=== PATIENT | female | born 1940 | race Caucasian/White ===

== ENCOUNTER 2019-04-25 13:35 | Inpatient (IN) | payer OTHER, MEDICARE ==
--- NOTE | 2019-04-25 13:40 | PDOC ---
Attending Attestation - Resident Resident Name: Jillian Jimenez - ED Attending Attestation I have performed the following: I have examined & evaluated the patient, The case was reviewed & discussed with the resident, I agree w/resident's findings & plan, Exceptions are as noted - HPI HPI: 04/25/19 16:41 78-year-old female with anemia and shortness of breath. Both problems date back several months, but it is uncertain to what extent they were present and how fast they are progressing. The patient does not feel she is more short of breath than usual, but her daughter has noticed that she becomes dyspneic after a short walk on level ground, whereas before it was precipitated only by climbing stairs. She suffered a fall with a broken wrist and multiple injuries in February and at that time was transferred from [facility] to [facility] for rehab. Before that she was living in the [place], and her primary physician was working up her anemia. She reportedly had colonoscopy and upper endoscopy which were negative, and normal iron studies Again, it is uncertain how fast her anemia is progressing, but it appears to be chronic. She is not orthostatic. She has been on insulin since being admitted to [facility]. Before that she was maintained on metformin for type II but diabetes for many years. She had a DVT after her fall and was begun on Eliquis 04/25/19 16:55 After prolonged catheterization, she was unable to urinate, Flomax was begun and she is now urinating well. - Physicial Exam PE: 10/Physical exam reveals normal vital signs. Alert oriented well-developed and well-nourished in no acute distress. She is not dyspneic or tachypneic at rest HEENT clear Neck supple without bruit mass or nodes Chest clear with full breath sounds bilaterally. No wheezes rales or rhonchi S1-S2 normal without murmur rub or gallop muscles full and symmetric no JVD or edema no bruits regular rate Abdomen soft nontender without mass or organomegaly. Bowel sounds normal. Nondistended Extremities no CCE Skin clear, no rash, adequate turgor and wet mucous membranes Neurological C2 to 12 intact. Strength full and symmetric. No focal sensorimotor deficits. EKG shows normal sinus rhythm, no ST-T wave changes. There is poor R wave progression, primarily in lead V3, which could be due to lead placement. No other abnormalities. Chest x-ray is clear, without sign of cardiomegaly or congestive changes. Labs are significant for hemoglobin 7.4. Prior readings on April 10, April 17 , and April 24 were in the 6.5-6.9 range. Urinalysis shows 20-30 white cells INR 1.43 No other significant abnormalities. - Medical Decision Making 04/25/19 16:59 Assessment: Chronic anemia, possibly slowly worsening, and resulting in dyspnea on exertion. No congestive signs on x-ray. No sign of infection or COPD. On Eliquis, PE unlikely. Plan: Admit for cardiology and hematology consultation, careful transfusion with monitoring, and further elucidation of the source of anemia.
--- NOTE | 2019-04-25 14:12 | PDOC ---
History of Present Illness - General Chief Complaint: Shortness of Breath Stated Complaint: SHORTNESS OF BREATH Time Seen by Provider: 04/25/19 13:37 Past History - Past Medical History Allergies/Adverse Reactions: Allergies Allergy/AdvReac Type Severity Reaction Status Date / Time No Known Allergies Allergy Verified 04/25/19 13:37 Home Medications: Ambulatory Orders Aa/Hydrolyzed Collagen, Whey [Lps Neutral Flavor Liquid] 30 ml PO DAILY Acetaminophen [Tylenol] 650 mg PO QID PRN 04/25/19 Apixaban [Eliquis] 5 mg PO BID 04/25/19 Ascorbate Calcium [Vitamin C] 500 mg PO DAILY 04/25/19 Benazepril HCl 10 mg PO DAILY 04/25/19 Cran B Pac 30 ml PO DAILY 04/25/19 Esomeprazole Magnesium [Nexium 24Hr] 20 mg PO DAILY 04/25/19 Glipizide [Glucotrol Xl] 10 mg PO DAILY 04/25/19 Insulin (LOG) Aspart [NovoLOG -] 7 unit SQ ASDIR 04/25/19 Insulin Glargine,Hum.rec.anlog [Lantus Solostar] 30 unit SQ AM 04/25/19 Levothyroxine [Synthroid -] 112 mcg PO DAILY 04/25/19 Melatonin/Pyridoxine HCl (B6) [Melatonin 5 mg Tablet] 1 tab PO HS 04/25/19 Multivitamin [Multiple Vitamins] 1 each PO DAILY 04/25/19 Nystatin Cream [Mycostatin Cream -] 1 applic TP DAILY 04/25/19 Ondansetron Injection [Zofran Injection] 4 mg IM Q8H PRN 04/25/19 Saccharomyces Boulardii [Florastor] 250 mg PO BID 04/25/19 Sennosides [Senna] 2 tab PO HS 04/25/19 Simethicone 80 mg PO QID PRN 04/25/19 Simvastatin 20 mg PO HS 04/25/19 Tamsulosin HCl [Flomax] 0.4 mg PO DAILY 04/25/19 Triamcinolone 0.1% Cream [Aristocort] 1 applic TP ASDIR 04/25/19 COPD: No GI Disorders: Yes (GERD) Disorders: Yes (DIFFICULTY URINATING,HAD CHENEY IN PLACE FOR A FEW WEEKS PER PT.) HTN: Yes Hypercholesterolemia: Yes Thyroid Disease: Yes (HYPO) Other medical history: OA,RT KNEE,OBEISITY,FALLS,DIFFICULTY WALKING,LEFT WRIST FRACTURE. - Surgical History Abdominal Surgery: (colonoscopy,endoscopy) - Psycho Social/Smoking Cessation Hx Smoking History: Unknown if ever smoked Hx Alcohol Use: No Drug/Substance Use Hx: No *Physical Exam - Vital Signs Last Vital Signs Temp Pulse Resp BP Pulse Ox 98.7 F 86 20 134/52 L 99 04/25/19 13:36 04/25/19 13:36 04/25/19 13:36 04/25/19 13:36 04/25/19 13:53 ED Treatment Course - LABORATORY CBC & Chemistry Diagram: 04/26/19 07:08 04/26/19 07:08 Medical Decision Making - Medical Decision Making HPI: 78yo F with PMH of HTN, HLD, DM, hypothyroidism, DVT in LLE (on Eliquis) sent by [facility] for evaluation of dyspnea on exertion and low hemoglobin. Patient' s daughter is at the bedside providing collateral history. Patient states she has had anemia since the past summer but is unsure why even though "they have run several tests." Has had recent colonoscopy which was negative for GI bleed. Is residing at [facility] after suffering a fall in February and sustaining left wrist fracture and broken nose. Has had urinary retention since that time for which she takes flomax. Reports feeling progressively worsening shortness of breath such that she can hardly walk across the room without feeling dyspneic. No weakness, lightheadedness, chest pain. Denies hematemesis, melena, or hematochezia. No fevers or chills. PCP: Dr. Baird (spelling? affilitated with Adrienne) [facility] ROS: Constitutional: no fever, no chills HEENT: no throat pain, no dysphagia Cardiovascular: no chest pain, no palpitations Respiratory: no cough, +shortness of breath Gastrointestinal: no abdominal pain, no nausea Genitourinary: no dysuria, +urinary retention Musculoskeletal: no myalgia, no arthralgia Skin: no rash, no itching Neurologic: no headache, no weakness PE: General: Awake, alert, and fully oriented, in no acute distress Head: No signs of trauma Eyes: EOMI, sclera anicteric ENT: Moist mucus membranes Neck: Normal ROM, supple Lungs: Lungs clear, Normal breath sounds Cardio: Regular rhythm, S1 and S2 present Abdomen: Soft, nontender Extremities: Distal pulses present, 2+ pitting edema in BLE SKIN: Warm, Dry, normal turgor Neurologic: Cranial nerves II through XII grossly intact. Normal speech Rectal: The skin is without erythema or induration. No external hemorrhoids, fissures, skin tags, warts, or discharge. Sphincter tone normal. There are no masses palpated on digital exam. Stool is brown with no myra red blood. ED Course/MDM: DDX including but not limited to anemia, GI bleed, pneumonia, COPD, asthma, malignancy, PE Labs, EKG, CXR 04/25/19 14:11 EKG: rate 80, QTc 435, NSR 04/25/19 15:16 CBC WBC 10.4 K/mm3 (4.0-10.8) 04/25/19 15:05 Corrected WBC (auto) Cancelled 04/25/19 14:15 RBC 3.37 M/mm3 (3.60-5.2) L 04/25/19 15:05 Hgb 7.4 GM/dl (10.7-15.3) L 04/25/19 15:05 Hct 25.1 % (32.4-45.2) L 04/25/19 15:05 MCV 74.6 fl (80-96) L 04/25/19 15:05 MCH 21.8 pg (25.7-33.7) L 04/25/19 15:05 MCHC 29.3 g/dl (32.0-36.0) L 04/25/19 15:05 RDW 17.7 % (11.6-15.6) H 04/25/19 15:05 Plt Count 435 K/MM3 (134-434) H 04/25/19 15:05 MPV 9.3 fl (7.5-11.1) 04/25/19 15:05 Absolute Neuts (auto) 7.1 K/mm3 04/25/19 15:05 Neutrophils % 68.8 % (42.8-82.8) 04/25/19 15:05 Lymphocytes % 19.8 % (8-40) 04/25/19 15:05 Monocytes % 9.6 % (3.8-10.2) 04/25/19 15:05 Eosinophils % 1.5 % (0-4.5) 04/25/19 15:05 Basophils % 0.3 % (0-2.0) 04/25/19 15:05 Nucleated RBC % Cancelled 04/25/19 14:15 Platelet Estimate Cancelled 04/25/19 14:15 Platelet Comment Cancelled 04/25/19 14:15 No leukocytosis Hgb 7.4 CMP Sodium 136 mmol/L (136-145) 04/25/19 14:15 Potassium 4.4 mmol/L (3.5-5.1) 04/25/19 14:15 Chloride 107 mmol/L (98-107) 04/25/19 14:15 Carbon Dioxide 24 mmol/L (21-32) 04/25/19 14:15 Anion Gap 5 MMOL/L (8-16) L 04/25/19 14:15 BUN 23.0 mg/dl (7-18) H 04/25/19 14:15 Creatinine 0.9 mg/dl (0.55-1.3) 04/25/19 14:15 Est GFR (CKD-EPI)AfAm 70.98 04/25/19 14:15 Est GFR (CKD-EPI)NonAf 61.24 04/25/19 14:15 Random Glucose 97 mg/dl (74-106) 04/25/19 14:15 Calcium 9.0 mg/dl (8.5-10) 04/25/19 14:15 Total Bilirubin 0.3 mg/dl (0.2-1) 04/25/19 14:15 AST 35 U/L (15-37) 04/25/19 14:15 ALT 29 U/L (13-61) 04/25/19 14:15 Alkaline Phosphatase 167 U/L (45-117) H 04/25/19 14:15 Creatine Kinase 18 U/L (26-192) L 04/25/19 14:15 Troponin I < 0.03 ng/ml (0.00-0.05) 04/25/19 14:15 Total Protein 5.9 g/dl (6.4-8.2) L 04/25/19 14:15 Albumin 3.5 g/dl (3.4-5.0) 04/25/19 14:15 Electrolytes unremarkable Cr normal No transaminitis Tpn undetectable FOBT negative UA with +2LE and +nitrite, pending differential; urine culture ordered 1 unit PRBC ordered Type and screen CXR as read by radiology: "CLINICAL:SOB Comparison: None Portable examination of the chest reveals no evidence of infiltrate or congestive changes. There is no evidence of mediastinal masses or hilar adenopathy. The visualized osseous and soft tissue structures are unremarkable. IMPRESSION: No infiltrate " Plan for admission 04/25/19 16:56 Explained benefits/risks of blood transfusion and patient voiced understanding. Patient signed blood consent with daughter witnessing 04/25/19 17:10 Dr. Licea discussed case with [facility] Eva Flaherty who accepted patient for admission under Dr. Rubi 04/25/19 17:39 Discharge - Discharge Information Problems reviewed: Yes Clinical Impression/Diagnosis: Symptomatic anemia Condition: Guarded - Admission Yes - Follow up/Referral - Patient Discharge Instructions - Post Discharge Activity
[2019-04-25 14:58] LABS: INR 1.43 (0.82-1.09); PROTHROMBIN TIME (PATIENT) 15.9 SEC (10.2-13.0)
[2019-04-25 15:02] LABS: ALBUMIN 3.5 g/dl (3.4-5.0); BILIRUBIN,TOTAL 0.3 mg/dl (0.2-1); CREATININE 0.9 mg/dl (0.55-1.3); POTASSIUM 4.4 mmol/L (3.5-5.1); TOT PROT 5.9 g/dl (6.4-8.2)
[2019-04-25 15:20] LABS: BASO % 0.3 % (0-2.0); EOS % 1.5 % (0-4.5); HEMATOCRIT 25.1 % (32.4-45.2); HEMOGLOBIN 7.4 GM/dl (10.7-15.3); LYMPH % 19.8 % (8-40); MCH 21.8 pg (25.7-33.7); MCHC 29.3 g/dl (32.0-36.0); MEAN CELL VOLUME 74.6 fl (80-96); MEAN PLT VOLUME 9.3 fl (7.5-11.1); MONO % 9.6 % (3.8-10.2); NEUT % 68.8 % (42.8-82.8); PLATELET COUNT 435 K/MM3 (134-434); RBC 3.37 M/mm3 (3.60-5.2); RDW 17.7 % (11.6-15.6); WHITE BLOOD COUNT 10.4 K/mm3 (4.0-10.8)
[2019-04-25 16:17] LABS: ADD RBC MORPHOLOGY YES
[2019-04-25 16:40] LABS: EPITHELIAL CELLS MODERATE /hpf
[2019-04-25 17:24] LABS: ANISOCYTOSIS 1+; PLATELET ESTIMATE SLT INCREASE
--- NOTE | 2019-04-25 17:51 | HP ---
CHIEF COMPLAINT: Shortness of breath PCP: Dr. Russ Baird, [facility] [phone] HISTORY OF PRESENT ILLNESS: 78 year-old female, presently a resident at [facility], with a PMH significant for HTN, HLD, anemia, Type II IDDM, h/o DVT LLE on Eliquis, GERD, hypothyroidism , OA, and urinary retention. Patient suffered a fall in February 2019 and sustained a left wrist fracture facial laceration, and a broken nose. She was hospitalized at [facility] and is now at [facility] undergoing rehab. While at [facility] she was found to have a LLE DVT and was started on Eliquis. Patient was sent to the ED today for increasing SOB, IQBAL, lower extremity edema, and anemia. Prior to her fall in February, patient's PCP was working up her anemia. She reportedly had negative cardiac and GI workups. ER course was notable for: (1) Hgb 7.4, MCV 74.6 (2) occult stool negative Recent Travel: No PAST MEDICAL HISTORY: Hypertension Hyperlipidemia Anemia Type II IDDM h/o DVT LLE GERD Hypothyroidism Osteoarthritis Left wrist fracture Urinary retention PAST SURGICAL HISTORY: Right hip replacement Social History: Smoking: no Alcohol: no Drugs: no Allergies No Known Allergies Allergy (Verified 04/25/19 13:37) HOME MEDICATIONS: Home Medications Medication Instructions Recorded Aa/Hydrolyzed Collagen, Whey [Lps 30 ml PO DAILY 04/25/19 Neutral Flavor Liquid] Acetaminophen [Tylenol] 650 mg PO QID PRN 04/25/19 Apixaban [Eliquis] 5 mg PO BID 04/25/19 Ascorbate Calcium [Vitamin C] 500 mg PO DAILY 04/25/19 Benazepril HCl 10 mg PO DAILY 04/25/19 Cran B Pac 30 ml PO DAILY 04/25/19 Esomeprazole Magnesium [Nexium 20 mg PO DAILY 04/25/19 24Hr] Glipizide [Glucotrol Xl] 10 mg PO DAILY 04/25/19 Insulin (LOG) Aspart [NovoLOG -] 7 unit SQ ASDIR 04/25/19 Insulin Glargine,Hum.rec.anlog 30 unit SQ AM 04/25/19 [Lantus Solostar] Levothyroxine [Synthroid -] 112 mcg PO DAILY 04/25/19 Melatonin/Pyridoxine HCl (B6) 1 tab PO HS 04/25/19 [Melatonin 5 mg Tablet] Multivitamin [Multiple Vitamins] 1 each PO DAILY 04/25/19 Nystatin Cream [Mycostatin Cream -] 1 applic TP DAILY 04/25/19 Ondansetron Injection [Zofran 4 mg IM Q8H PRN 04/25/19 Injection] Saccharomyces Boulardii [Florastor] 250 mg PO BID 04/25/19 Sennosides [Senna] 2 tab PO HS 04/25/19 Simethicone 80 mg PO QID PRN 04/25/19 Simvastatin 20 mg PO HS 04/25/19 Tamsulosin HCl [Flomax] 0.4 mg PO DAILY 04/25/19 Triamcinolone 0.1% Cream 1 applic TP ASDIR 04/25/19 [Aristocort] REVIEW OF SYSTEMS CONSTITUTIONAL: Absent: fever, chills, diaphoresis, generalized weakness, malaise, loss of appetite, weight change HEENT: Absent: rhinorrhea, nasal congestion, throat pain, throat swelling, difficulty swallowing, mouth swelling, ear pain, eye pain, visual changes CARDIOVASCULAR: lower extremity edema Absent: chest pain, syncope, palpitations, irregular heart rate, lightheadedness RESPIRATORY: +shortness of breath, dyspnea with exertion Absent: cough, , orthopnea, wheezing, stridor, hemoptysis GASTROINTESTINAL: Absent: abdominal pain, abdominal distension, nausea, vomiting, diarrhea, constipation, melena, hematochezia GENITOURINARY: Absent: dysuria, frequency, urgency, hesitancy, hematuria, flank pain, genital pain MUSCULOSKELETAL: Absent: myalgia, arthralgia, joint swelling, back pain, neck pain SKIN: Absent: rash, itching, pallor HEMATOLOGIC/IMMUNOLOGIC: Absent: easy bleeding, easy bruising, lymphadenopathy, frequent infections ENDOCRINE: Absent: unexplained weight gain, unexplained weight loss, heat intolerance, cold intolerance NEUROLOGIC: Absent: headache, focal weakness or paresthesias, dizziness, unsteady gait, seizure, mental status changes, bladder or bowel incontinence PSYCHIATRIC: Absent: anxiety, depression, suicidal or homicidal ideation, hallucinations. PHYSICAL EXAMINATION Vital Signs - 24 hr 04/25/19 04/25/19 04/25/19 13:36 13:53 17:01 Temperature 98.7 F Pulse Rate 86 Pulse Rate [ 87 Apical] Respiratory 20 19 Rate Blood Pressure 134/52 L Blood Pressure 126/56 L [Arm] O2 Sat by Pulse 99 99 100 Oximetry (%) GENERAL: Awake, alert, and fully oriented, in no acute distress. HEAD: Normal. Healed scar on forehead. EYES: Pupils equal, round and reactive to light, extraocular movements intact, sclera anicteric, conjunctiva clear. No lid lag. LUNGS: Breath sounds equal, clear to auscultation bilaterally. No wheezes, and no crackles. No accessory muscle use. HEART: Regular rate and rhythm, normal S1 and S2 ABDOMEN: Soft, nontender, not distended MUSCULOSKELETAL: Normal range of motion at all joints. No bony deformities or tenderness. No CVA tenderness. UPPER EXTREMITIES: 2+ pulses, warm, well-perfused. No cyanosis. No clubbing. No peripheral edema. Left wrist in splint. LOWER EXTREMITIES: 2+ pulses, warm, well-perfused. No calf tenderness. 2+ bilateral edema NEUROLOGICAL: Cranial nerves II-XII intact. Normal speech. Laboratory Results - last 24 hr 04/25/19 04/25/19 04/25/19 14:15 14:15 14:15 WBC Cancelled Corrected WBC (auto) Cancelled RBC Cancelled Hgb Cancelled Hct Cancelled MCV Cancelled MCH Cancelled MCHC Cancelled RDW Cancelled Plt Count Cancelled MPV Cancelled Absolute Neuts (auto) Cancelled Neutrophils % Cancelled Lymphocytes % Cancelled Monocytes % Cancelled Eosinophils % Cancelled Basophils % Cancelled Nucleated RBC % Cancelled Platelet Estimate Cancelled Platelet Comment Cancelled PT with INR INR Sodium 136 Potassium 4.4 Chloride 107 Carbon Dioxide 24 Anion Gap 5 L BUN 23.0 H Creatinine 0.9 Est GFR (CKD-EPI)AfAm 70.98 Est GFR (CKD-EPI)NonAf 61.24 Random Glucose 97 Calcium 9.0 Total Bilirubin 0.3 AST 35 ALT 29 Alkaline Phosphatase 167 H Creatine Kinase 18 L Troponin I < 0.03 Total Protein 5.9 L Albumin 3.5 Urine Color Urine Appearance Urine pH Urine Protein Urine Glucose (UA) Urine Ketones Urine Blood Urine Nitrite Urine Bilirubin Urine Urobilinogen Ur Leukocyte Esterase Urine RBC Urine WBC Ur Transition Epith Cell Urine Bacteria Stool Occult Blood 04/25/19 04/25/19 04/25/19 14:15 15:05 15:15 WBC 10.4 Corrected WBC (auto) RBC 3.37 L Hgb 7.4 L Hct 25.1 L MCV 74.6 L MCH 21.8 L MCHC 29.3 L RDW 17.7 H Plt Count 435 H MPV 9.3 Absolute Neuts (auto) 7.1 Neutrophils % 68.8 Lymphocytes % 19.8 Monocytes % 9.6 Eosinophils % 1.5 Basophils % 0.3 Nucleated RBC % Platelet Estimate Platelet Comment PT with INR 15.9 H INR 1.43 H Sodium Potassium Chloride Carbon Dioxide Anion Gap BUN Creatinine Est GFR (CKD-EPI)AfAm Est GFR (CKD-EPI)NonAf Random Glucose Calcium Total Bilirubin AST ALT Alkaline Phosphatase Creatine Kinase Troponin I Total Protein Albumin Urine Color Yellow Urine Appearance Clear Urine pH 6.0 Urine Protein Negative Urine Glucose (UA) Negative Urine Ketones Negative Urine Blood Negative Urine Nitrite Positive H Urine Bilirubin Negative Urine Urobilinogen 0.2 Ur Leukocyte Esterase 2+ Urine RBC 0-2 Urine WBC 40-60 Ur Transition Epith Cell Moderate Urine Bacteria Moderate Stool Occult Blood 04/25/19 16:02 WBC Corrected WBC (auto) RBC Hgb Hct MCV MCH MCHC RDW Plt Count MPV Absolute Neuts (auto) Neutrophils % Lymphocytes % Monocytes % Eosinophils % Basophils % Nucleated RBC % Platelet Estimate Platelet Comment PT with INR INR Sodium Potassium Chloride Carbon Dioxide Anion Gap BUN Creatinine Est GFR (CKD-EPI)AfAm Est GFR (CKD-EPI)NonAf Random Glucose Calcium Total Bilirubin AST ALT Alkaline Phosphatase Creatine Kinase Troponin I Total Protein Albumin Urine Color Urine Appearance Urine pH Urine Protein Urine Glucose (UA) Urine Ketones Urine Blood Urine Nitrite Urine Bilirubin Urine Urobilinogen Ur Leukocyte Esterase Urine RBC Urine WBC Ur Transition Epith Cell Urine Bacteria Stool Occult Blood Negative ASSESSMENT/PLAN: 78 year-old female, presently a resident at [facility], with a PMH significant for HTN, HLD, anemia, Type II IDDM, h/o DVT LLE on Eliquis, GERD, hypothyroidism , OA, and urinary retention. Admitted for microcytic anemia with shortness of breath. Microcytic anemia --Hgb 7.4, prior labs from 04/10, 04/17, 04/24 were in the 6.5-6.9 range --will transfuse one unit PRBC --GI workup within past 6 months negative; occult stool negative here --heme consult placed h/o DVT --continue Eliquis Shortness of breath --uncertain etiology --may be related to anemia --Wells score moderate risk, will get CTA --first troponin negative, two pending; serial ECGs; telemetry monitoring; echo in am --CXR clear, afebrile, no leukocytosis, no h/o asthma/COPD or other respiratory illness Pyuria --UA with 40-60 WBCs --observe off antibiotics pending culture Hypertension --BP stable --continue Lisinopril Hyperlipidemia --continue Lipitor Type II IDDM --Levemir 30U am --Novolog sliding scale GERD --protonix Hypothyroidism --continue levothyroxine --TSH Urinary retention --continue Flomax FEN Fluids: PO intake adequate Electrolytes: replete as indicated Nutrition: diabetic, low sodium DVT prophylaxis: on Eliquis Physical therapy Dispo: continues to require inpatient care. Full code. Visit type - Emergency Visit Emergency Visit: Yes ED Registration Date: 04/25/19 Care time: The patient presented to the Emergency Department on the above date and was hospitalized for further evaluation of their emergent condition. - New Patient This patient is new to me today: Yes Date on this admission: 04/26/19 - Critical Care Critical Care patient: No
[2019-04-25 18:20] VITALS: BMI 32.1
[2019-04-25] MEDS: ATORVASTATIN CA 10 MG TABLET (FP) PO SCH (21:29)
[2019-04-25] MEDS: APIXABAN 5 MG TABLET PO SCH (21:29)
[2019-04-25] MEDS: INSULIN SLIDING SCALE (NOVOLOG) 1 VIAL SQ SCH (21:31)
[2019-04-25] MEDS: MELATONIN 5 MG TABLETS PO SCH (21:31)
--- NOTE | 2019-04-26 04:25 | PN ---
Physical Exam: SUBJECTIVE: Patient seen and examined oob to chair. Feels better after transfusion. OBJECTIVE: Vital Signs Period Temp Pulse Resp BP Sys/Sampson Pulse Ox Last 24 Hr 98.2 F-98.7 F 77-88 18-20 126-138/51-56 98-100 GENERAL: Awake, alert, and fully oriented, in no acute distress. HEAD: Normal. Healed scar on forehead. EYES: Pupils equal, round and reactive to light, extraocular movements intact, sclera anicteric, conjunctiva clear. No lid lag. LUNGS: Breath sounds equal, clear to auscultation bilaterally. No wheezes, and no crackles. No accessory muscle use. HEART: Regular rate and rhythm, normal S1 and S2 ABDOMEN: Soft, nontender, not distended MUSCULOSKELETAL: Normal range of motion at all joints. No bony deformities or tenderness. No CVA tenderness. UPPER EXTREMITIES: 2+ pulses, warm, well-perfused. No cyanosis. No clubbing. No peripheral edema. Left wrist in splint. LOWER EXTREMITIES: 2+ pulses, warm, well-perfused. No calf tenderness. LLE 3+ edema, RLE 2+edema NEUROLOGICAL: Cranial nerves II-XII intact. Normal speech. Laboratory Results - last 24 hr 04/25/19 04/25/19 04/25/19 14:15 14:15 14:15 WBC Cancelled Corrected WBC (auto) Cancelled RBC Cancelled Hgb Cancelled Hct Cancelled MCV Cancelled MCH Cancelled MCHC Cancelled RDW Cancelled Plt Count Cancelled MPV Cancelled Absolute Neuts (auto) Cancelled Neutrophils % Cancelled Lymphocytes % Cancelled Monocytes % Cancelled Eosinophils % Cancelled Basophils % Cancelled Nucleated RBC % Cancelled Hypochromia Platelet Estimate Cancelled Platelet Comment Cancelled Anisocytosis Microcytosis Retic Count PT with INR INR Sodium 136 Potassium 4.4 Chloride 107 Carbon Dioxide 24 Anion Gap 5 L BUN 23.0 H Creatinine 0.9 Est GFR (CKD-EPI)AfAm 70.98 Est GFR (CKD-EPI)NonAf 61.24 POC Glucometer Random Glucose 97 Calcium 9.0 Total Bilirubin 0.3 AST 35 ALT 29 Alkaline Phosphatase 167 H Creatine Kinase 18 L Troponin I < 0.03 B-Natriuretic Peptide Total Protein 5.9 L Albumin 3.5 Urine Color Urine Appearance Urine pH Urine Protein Urine Glucose (UA) Urine Ketones Urine Blood Urine Nitrite Urine Bilirubin Urine Urobilinogen Ur Leukocyte Esterase Urine RBC Urine WBC Ur Transition Epith Cell Urine Bacteria Stool Occult Blood Blood Type Antibody Screen Crossmatch 04/25/19 04/25/19 04/25/19 14:15 14:15 15:05 WBC 10.4 Corrected WBC (auto) RBC 3.37 L Hgb 7.4 L Hct 25.1 L MCV 74.6 L MCH 21.8 L MCHC 29.3 L RDW 17.7 H Plt Count 435 H MPV 9.3 Absolute Neuts (auto) 7.1 Neutrophils % 68.8 Lymphocytes % 19.8 Monocytes % 9.6 Eosinophils % 1.5 Basophils % 0.3 Nucleated RBC % Hypochromia 2+ Platelet Estimate Slt increase Platelet Comment Anisocytosis 1+ Microcytosis 1+ Retic Count PT with INR 15.9 H INR 1.43 H Sodium Potassium Chloride Carbon Dioxide Anion Gap BUN Creatinine Est GFR (CKD-EPI)AfAm Est GFR (CKD-EPI)NonAf POC Glucometer Random Glucose Calcium Total Bilirubin AST ALT Alkaline Phosphatase Creatine Kinase Troponin I B-Natriuretic Peptide 224.7 Total Protein Albumin Urine Color Urine Appearance Urine pH Urine Protein Urine Glucose (UA) Urine Ketones Urine Blood Urine Nitrite Urine Bilirubin Urine Urobilinogen Ur Leukocyte Esterase Urine RBC Urine WBC Ur Transition Epith Cell Urine Bacteria Stool Occult Blood Blood Type Antibody Screen Crossmatch 04/25/19 04/25/19 04/25/19 15:05 15:15 16:02 WBC Corrected WBC (auto) RBC Hgb Hct MCV MCH MCHC RDW Plt Count MPV Absolute Neuts (auto) Neutrophils % Lymphocytes % Monocytes % Eosinophils % Basophils % Nucleated RBC % Hypochromia Platelet Estimate Platelet Comment Anisocytosis Microcytosis Retic Count 3.26 H PT with INR INR Sodium Potassium Chloride Carbon Dioxide Anion Gap BUN Creatinine Est GFR (CKD-EPI)AfAm Est GFR (CKD-EPI)NonAf POC Glucometer Random Glucose Calcium Total Bilirubin AST ALT Alkaline Phosphatase Creatine Kinase Troponin I B-Natriuretic Peptide Total Protein Albumin Urine Color Yellow Urine Appearance Clear Urine pH 6.0 Urine Protein Negative Urine Glucose (UA) Negative Urine Ketones Negative Urine Blood Negative Urine Nitrite Positive H Urine Bilirubin Negative Urine Urobilinogen 0.2 Ur Leukocyte Esterase 2+ Urine RBC 0-2 Urine WBC 40-60 Ur Transition Epith Cell Moderate Urine Bacteria Moderate Stool Occult Blood Negative Blood Type Antibody Screen Crossmatch 04/25/19 04/25/19 04/25/19 16:39 16:40 20:45 WBC Corrected WBC (auto) RBC Hgb Hct MCV MCH MCHC RDW Plt Count MPV Absolute Neuts (auto) Neutrophils % Lymphocytes % Monocytes % Eosinophils % Basophils % Nucleated RBC % Hypochromia Platelet Estimate Platelet Comment Anisocytosis Microcytosis Retic Count PT with INR INR Sodium Potassium Chloride Carbon Dioxide Anion Gap BUN Creatinine Est GFR (CKD-EPI)AfAm Est GFR (CKD-EPI)NonAf POC Glucometer Random Glucose Calcium Total Bilirubin AST ALT Alkaline Phosphatase Creatine Kinase Troponin I < 0.03 B-Natriuretic Peptide Total Protein Albumin Urine Color Urine Appearance Urine pH Urine Protein Urine Glucose (UA) Urine Ketones Urine Blood Urine Nitrite Urine Bilirubin Urine Urobilinogen Ur Leukocyte Esterase Urine RBC Urine WBC Ur Transition Epith Cell Urine Bacteria Stool Occult Blood Blood Type O POSITIVE O POSITIVE Antibody Screen Negative Crossmatch See Detail 04/25/19 04/26/19 20:45 03:00 WBC Corrected WBC (auto) RBC Hgb Hct MCV MCH MCHC RDW Plt Count MPV Absolute Neuts (auto) Neutrophils % Lymphocytes % Monocytes % Eosinophils % Basophils % Nucleated RBC % Hypochromia Platelet Estimate Platelet Comment Anisocytosis Microcytosis Retic Count PT with INR INR Sodium Potassium Chloride Carbon Dioxide Anion Gap BUN Creatinine Est GFR (CKD-EPI)AfAm Est GFR (CKD-EPI)NonAf POC Glucometer 293 Random Glucose Calcium Total Bilirubin AST ALT Alkaline Phosphatase Creatine Kinase Troponin I < 0.02 B-Natriuretic Peptide Total Protein Albumin Urine Color Urine Appearance Urine pH Urine Protein Urine Glucose (UA) Urine Ketones Urine Blood Urine Nitrite Urine Bilirubin Urine Urobilinogen Ur Leukocyte Esterase Urine RBC Urine WBC Ur Transition Epith Cell Urine Bacteria Stool Occult Blood Blood Type Antibody Screen Crossmatch Active Medications Generic Name Dose Route Start Last Admin Trade Name Freq PRN Reason Stop Dose Admin Apixaban 5 mg 04/25/19 22:00 04/25/19 21:29 Eliquis - PO 5 mg BID BRADY Administration Atorvastatin Calcium 10 mg 04/25/19 22:00 04/25/19 21:29 Lipitor - PO 10 mg HS BRADY Administration Insulin Aspart 1 vial 04/25/19 22:00 04/25/19 21:31 Novolog Vial Sliding Scale - SQ 6 units ACHS BRADY Administration Protocol Insulin Detemir 30 units 04/26/19 07:00 Levemir Vial SQ AM BRADY Levothyroxine Sodium 112 mcg 04/26/19 07:00 Synthroid - PO AM BRADY Lisinopril 10 mg 04/26/19 10:00 Prinivil PO DAILY BRADY Melatonin 5 mg 04/25/19 22:00 04/25/19 21:31 Melatonin PO 5 mg HS BRADY Administration Pantoprazole Sodium 20 mg 04/26/19 10:00 Protonix - PO DAILY BRADY Senna 2 tab 04/25/19 22:00 Senna - PO HS BRADY Tamsulosin HCl 0.4 mg 04/26/19 08:30 Flomax - PO DAILY@0830 [facility] ASSESSMENT/PLAN: 78 year-old female, presently a resident at [facility], with a PMH significant for HTN, HLD, anemia, Type II IDDM, h/o DVT LLE on Eliquis, GERD, hypothyroidism , OA, and urinary retention. Admitted for microcytic anemia with shortness of breath. Microcytic anemia r/o blood loss anemia Chronology: --October 2018: workup by PCP Dr. Baird showed iron-deficiency anemia --December 2018: EGD and colonoscopy by Dr. Villalobos, [facility], atypical cells, no follow up by patient --February 2019: hospitalized for multiple injuries from a fall; Hgb 9.1 while inpatient at [facility] --April 2019: at [facility], started on Eliquis for DVT; Hgb drops 6.5-->6.9 --04/25: admitted to ; Hgb 7.4; transfused 1U PRBC --04/26: Hgb 8.7, good response; US b/l LE: negative for DVT -- LLE DVT --discovered while at [facility], started on Eliquis --US duplex pending Shortness of breath --uncertain etiology --may be related to anemia --Wells score moderate risk, CTA done negative for PE --troponins negative x 3; serial ECGs; telemetry monitoring; patient's psychologist engineering Dr. Mckee at [facility] ([phone]); he did stress in November which was negative; last echo was done in 2015, EF 45%; will get repeat echo --CXR clear, afebrile, no leukocytosis, no h/o asthma/COPD or other respiratory illness Pyuria --UA with 40-60 WBCs --observe off antibiotics pending culture Hypertension --BP stable --continue Lisinopril Hyperlipidemia --continue Lipitor Type II IDDM --Levemir 30U am --Novolog sliding scale GERD --protonix Hypothyroidism --continue levothyroxine --TSH Urinary retention --continue Flomax FEN Fluids: PO intake adequate Electrolytes: replete as indicated Nutrition: diabetic, low sodium DVT prophylaxis: on Eliquis Physical therapy Dispo: continues to require inpatient care. Full code. Visit type - Emergency Visit Emergency Visit: Yes ED Registration Date: 04/25/19 Care time: The patient presented to the Emergency Department on the above date and was hospitalized for further evaluation of their emergent condition. - New Patient This patient is new to me today: No - Critical Care Critical Care patient: No
[2019-04-26] MEDS: LEVOTHYROXINE NA 112 MCG TABLET (FP) PO SCH (06:18)
[2019-04-26] MEDS: SENNOSIDES 8.6MG TABLET (FP) PO SCH ×2 (06:20→21:27)
[2019-04-26] MEDS: INSULIN (LEVEMIR) 100 UNITS/ML UNITS SQ SCH (06:37)
[2019-04-26] MEDS: INSULIN SLIDING SCALE (NOVOLOG) 1 VIAL SQ SCH ×4 (06:37→21:28)
[2019-04-26 07:31] LABS: ALBUMIN 3.1 g/dl (3.4-5.0); BILIRUBIN,TOTAL 0.5 mg/dl (0.2-1); CALCIUM 8.8 mg/dl (8.5-10); CREATININE 0.7 mg/dl (0.55-1.3); PHOSPHOROUS 4.1 mg/dl (2.5-4.9); POTASSIUM 4.5 mmol/L (3.5-5.1); TOT PROT 5.4 g/dl (6.4-8.2)
[2019-04-26 08:22] LABS: BASO % 0.2 % (0-2.0); EOS % 1.2 % (0-4.5); HEMATOCRIT 30.1 % (32.4-45.2); LYMPH % 20.8 % (8-40); MCH 22.1 pg (25.7-33.7); MEAN CELL VOLUME 76.1 fl (80-96); MEAN PLT VOLUME 9.6 fl (7.5-11.1); MONO % 8.5 % (3.8-10.2); NEUT % 69.3 % (42.8-82.8); PLATELET COUNT 414 K/MM3 (134-434); RBC 3.95 M/mm3 (3.60-5.2); RDW 16.9 % (11.6-15.6); WHITE BLOOD COUNT 9.6 K/mm3 (4.0-10.8)
[2019-04-26 08:24] LABS: HEMOGLOBIN 8.7 GM/dl (10.7-15.3)
[2019-04-26] MEDS: TAMSULOSIN HCL 0.4 MG CAP PO SCH (08:30)
[2019-04-26] MEDS: APIXABAN 5 MG TABLET PO SCH (10:00)
[2019-04-26] MEDS: PANTOPRAZOLE 20 MG TABLET (FP) PO SCH (10:05)
[2019-04-26] MEDS: LISINOPRIL 10 MG TABLET (FP) PO SCH (10:05)
--- NOTE | 2019-04-26 13:21 | EKG ---
Test Reason : Blood Pressure : / mmHG Vent. Rate : 080 BPM Atrial Rate : 080 BPM P-R Int : 144 ms QRS Dur : 078 ms QT Int : 378 ms P-R-T Axes : 051 -25 031 degrees QTc Int : 435 ms NORMAL SINUS RHYTHM POSSIBLE ANTERIOR INFARCT , AGE UNDETERMINED ABNORMAL ECG NO PREVIOUS ECGS AVAILABLE Confirmed by PETER LAL, ISRRAEL ([id number]) on 04/26/2019 1:20:57 PM Referred By: MD DANG Confirmed By:ISRRAEL GREEN MD
--- NOTE | 2019-04-26 15:16 | CONSULT ---
Consult Consult Specialty:: heme Reason for Consultation:: anemia - History of Present Illness Chief Complaint: prog sob History of Present Illness: 78 [facility] pt w known mod bebo this year. Labs revd from [facility] 02/2019 show iron def and low-nl B12. cbc prior to that was 2016 showing no anemia She had colonoscopy, egd (dr lang villasenor 12/27) remarkable foe rectal polyp w cytol ->atyp squamous cells, asc colon polyps-> TAs, inclu fragmented one. She notes she did not have vce. consumes reg diet, does not take iron supplement, and denies any bleeding. first tranfusion was yest and reports feeling better. Noteworthy is fall 02/26 w subsequent wrist, nasal fxs. Whlie at rehab told she had a LE dvt and eliquis was started w possibly further drop in h/h - History Source History Provided By: Patient, Medical Record Limitations to Obtaining History: No Limitations - Alcohol/Substance Use Hx Alcohol Use: No - Smoking History Smoking history: Unknown if ever smoked Have you smoked in the past 12 months: No Aproximately how many cigarettes per day: 20 If you are a former smoker, when did you quit?: 15 years ago Home Medications - Allergies Allergies/Adverse Reactions: Allergies Allergy/AdvReac Type Severity Reaction Status Date / Time No Known Allergies Allergy Verified 04/25/19 13:37 - Home Medications Home Medications: Ambulatory Orders Aa/Hydrolyzed Collagen, Whey [Lps Neutral Flavor Liquid] 30 ml PO DAILY Acetaminophen [Tylenol] 650 mg PO QID PRN 04/25/19 Apixaban [Eliquis] 5 mg PO BID 04/25/19 Ascorbate Calcium [Vitamin C] 500 mg PO DAILY 04/25/19 Benazepril HCl 10 mg PO DAILY 04/25/19 Cran B Pac 30 ml PO DAILY 04/25/19 Esomeprazole Magnesium [Nexium 24Hr] 20 mg PO DAILY 04/25/19 Glipizide [Glucotrol Xl] 10 mg PO DAILY 04/25/19 Insulin (LOG) Aspart [NovoLOG -] 7 unit SQ ASDIR 04/25/19 Insulin Glargine,Hum.rec.anlog [Lantus Solostar] 30 unit SQ AM 04/25/19 Levothyroxine [Synthroid -] 112 mcg PO DAILY 04/25/19 Melatonin/Pyridoxine HCl (B6) [Melatonin 5 mg Tablet] 1 tab PO HS 04/25/19 Multivitamin [Multiple Vitamins] 1 each PO DAILY 04/25/19 Nystatin Cream [Mycostatin Cream -] 1 applic TP DAILY 04/25/19 Ondansetron Injection [Zofran Injection] 4 mg IM Q8H PRN 04/25/19 Saccharomyces Boulardii [Florastor] 250 mg PO BID 04/25/19 Sennosides [Senna] 2 tab PO HS 04/25/19 Simethicone 80 mg PO QID PRN 04/25/19 Simvastatin 20 mg PO HS 04/25/19 Tamsulosin HCl [Flomax] 0.4 mg PO DAILY 04/25/19 Triamcinolone 0.1% Cream [Aristocort] 1 applic TP ASDIR 04/25/19 Physical Exam Vital Signs: Vital Signs Temperature 98.7 F 04/26/19 14:00 Pulse Rate 72 04/26/19 14:00 Respiratory Rate 18 04/26/19 14:00 Blood Pressure 122/48 L 04/26/19 14:00 O2 Sat by Pulse Oximetry (%) 100 04/26/19 14:00 Constitutional: Yes: No Distress (anicteric), Calm Eyes: Yes: Other (anicteric) Neck: Yes: Supple Cardiovascular: Yes: Regular Rate and Rhythm Respiratory: Yes: CTA Bilaterally Gastrointestinal: Yes: WNL, Normal Bowel Sounds, Soft Extremities: Yes: Other (grossly=size LEs, NT) Edema: Yes Edema: LLE: Trace, RLE: Trace Labs: CBC, BMP 04/26/19 07:08 04/26/19 07:08 Assessment/Plan prog microcytic anemia w iron def and low-nl B12. h/h likely further dec w institution of a/c suggest: check duplex, for lung imaging , obtain the duplex report capturing thrombosis. If no clot now, can remain off a/c. If ongoing need for a/c, may require f urther gi w/u as inpt will need to address significance of GI path findings-> the fragment of ta and atyp squamous cells in rectal polyp start oral B12 for now and send MMA, IF Ab would dose venofer 200 mg IV in pt w bert, baseline constipation, remote h/o intol to trial oral iron
--- NOTE | 2019-04-26 16:19 | ECHO ---
Name: DAVION GONZALEZ Exam:Adult Echocardiogram Study Date: 04/26/2019 12:44 PM Age: 78 yrs Reason For Study: SOB Height: 63 in Weight: 130 lb BSA: 1.6 m2 MMode/2D Measurements & Calculations IVSd: 1.0 cm Ao root diam: 2.8 cm LVIDd: 4.5 cm LA dimension: 3.4 cm LVIDs: 3.0 cm LVPWd: 0.91 cm EDV(Teich): 93.7 ml LVOT diam: 2.0 cm ESV(Teich): 34.0 ml Doppler Measurements & Calculations MV E max kobi: 126.6 cm/sec MV A max kobi: 174.7 cm/sec MV dec slope: 671.0 cm/sec2 MV E/A: 0.72 Ao V2 max: 195.0 cm/sec LV V1 max P.8 mmHg Ao max P.2 mmHg LV V1 max: 109.8 cm/sec KATE(V,D): 1.7 cm2 MR max kobi: 326.6 cm/sec TR max kobi: 181.2 cm/sec MR max P.7 mmHg TR max P.4 mmHg PA V2 max: 120.4 cm/sec PI end-d kobi: 108.6 cm/sec PA max P.8 mmHg Procedure A complete two-dimensional transthoracic echocardiogram was performed (2D, M-mode, Doppler and color flow Doppler). Left Ventricle The left ventricular size, thickness and function are normal. The left ventricular ejection fraction is normal. Ejection Fraction = 55-60%. The left ventricular wall motion is normal. Right Ventricle The right ventricle is normal in size and function. Atria Normal left and right atrial size and function. Mitral Valve There is no mitral regurgitation noted. Tricuspid Valve There is trace tricuspid regurgitation. There was insufficient TR detected to calculate RV systolic p ressure. Aortic Valve The aortic valve is trileaflet. No hemodynamically significant valvular aortic stenosis. No aortic regurgitation is present. Pulmonic Valve There is no pulmonic valvular regurgitation. Great Vessels The aortic root is normal size. Pericardium/Pleura There is no pericardial effusion. Interpretation Summary The left ventricular size, thickness and function are normal The right ventricle is normal in size and function. There is trace tricuspid regurgitation. MD Tomasz Del Real 04/26/2019 04:18 PM
--- NOTE | 2019-04-26 16:55 | PN ---
Progress Note (short form) - Note Progress Note: Patient seen and consult dictated. [facility] chart also reviewed with prior EGD/colonoscopy reports from 12/27 (Dr Villalobos). Patient with hx of iron def anemia ?etiology. GI endoscopy showed : gastritis, hiatal hernia, benign colon polyps, diverticulosis and hemorrhoids (no specific bleeding site seen). Patient had stable Hct until she was placed on Eliquis ; admitted with drop in Hct. Currently stable s/p PRBC transfusion and is off Eliquis. Would Rx with either PPI or H2 megan, follow Hct and avoid a/c if possible. Agree with plans for iron supplementation. Consider small bowel capsule study as outpatient. Defer repeat EGD or colonoscopy at this time.
--- NOTE | 2019-04-26 17:21 | CONS ---
DATE OF CONSULTATION: DATE OF DICTATION: 04/26/2019 I was asked to evaluate this 78-year-old female with an iron deficiency anemia and a recent and a recent drop in her hematocrit. The patient is a 78-year-old female with a history of hypertension, hypercholesterolemia, type 2 diabetes mellitus, hypothyroidism, and gastroesophageal reflux. She has a history of colonic polyps with 2 benign tubal adenomas removed on colonoscopy in 2009, and both upper endoscopy and colonoscopy performed in December of this year by Dr. Brianna Villalobos, at [facility] for evaluation of iron deficiency anemia. The upper endoscopy showed mild gastritis and a 3-cm hiatal hernia. The colonoscopy showed sigmoid diverticulosis, internal hemorrhoids, and 2 small polyps, which were removed. No specific source of bleeding was noted. The patient remained with a relatively stable hematocrit until recently. She was placed on Eliquis for DVT, and was admitted to [facility] with a drop in her blood count without any specific GI complaints. Her admission hematocrit was 25.1, hemoglobin 7.4, although according to the emergency room note, at [facility] she was having some increased shortness of breath and may have had a lower hemoglobin and hematocrit. The patient was taken off the blood thinner and has received packed red blood cell transfusion. Her most recent hematocrit is 30.1%. The patient has less shortness of breath at the present time. Her INR is 1.43 and her chemistries are unremarkable, with a BUN of 18, a creatinine of 0.7. Specifically, the patient denies any melena or bright red blood per rectum. She has no abdominal pain or cramps. PHYSICAL EXAMINATION: General: She is a well-developed well-nourished female, lying comfortably in bed. Eyes: She has slightly pale to pink conjunctivae, no icterus. Lungs: Grossly clear lungs. Cardiac: With a regular rate and rhythm. Abdomen: Soft, flat, and nontender. Patient with a history of an iron deficiency anemia and occult GI bleeding of unclear etiology. She has had both upper and lower GI endoscopies as of December of this year, without any specific bleeding site identified, however, she was noted to have mild gastritis and also had 2 polyps, diverticulosis, and hemorrhoids. She appeared stable until she was started on Eliquis, which likely exacerbated whatever her source of bleeding was underlying. She may have a small-bowel lesion or ectasia, which has not been evaluated, and a small-bowel capsule study would be suggested at a future date if the patient is stable. At the present time, would continue the patient on p.o. diet as tolerated, avoid the use of anticoagulation unless absolutely needed, and will follow expectantly. Defer repeat upper endoscopy or colonoscopy at the present time. ALINE ESTEVEZ M.D. [id number]
[2019-04-26] MEDS: MELATONIN 5 MG TABLETS PO SCH (21:27)
[2019-04-26] MEDS: ATORVASTATIN CA 10 MG TABLET (FP) PO SCH (21:27)
[2019-04-26] MEDS: HEPARIN NA (PORCINE) 5,000 UNITS/ML 1ML VIAL SQ SCH (21:28)
[2019-04-27] MEDS: HEPARIN NA (PORCINE) 5,000 UNITS/ML 1ML VIAL SQ SCH ×3 (06:28→16:07)
[2019-04-27] MEDS: LEVOTHYROXINE NA 112 MCG TABLET (FP) PO SCH (06:28)
[2019-04-27] MEDS: INSULIN (LEVEMIR) 100 UNITS/ML UNITS SQ SCH (06:35)
[2019-04-27] MEDS: INSULIN SLIDING SCALE (NOVOLOG) 1 VIAL SQ SCH ×4 (06:35→21:34)
[2019-04-27] MEDS: TAMSULOSIN HCL 0.4 MG CAP PO SCH (07:42)
[2019-04-27] MEDS: PANTOPRAZOLE 20 MG TABLET (FP) PO SCH (09:08)
[2019-04-27] MEDS: LISINOPRIL 10 MG TABLET (FP) PO SCH (09:08)
[2019-04-27 10:50] LABS: BASO % 0.5 % (0-2.0); EOS % 2.7 % (0-4.5); HEMOGLOBIN 8.6 GM/dl (10.7-15.3); LYMPH % 15.9 % (8-40); MCH 22.3 pg (25.7-33.7); MCHC 29.7 g/dl (32.0-36.0); MEAN CELL VOLUME 75.2 fl (80-96); MEAN PLT VOLUME 9.7 fl (7.5-11.1); MONO % 8.1 % (3.8-10.2); NEUT % 72.8 % (42.8-82.8); PLATELET COUNT 409 K/MM3 (134-434); RBC 3.85 M/mm3 (3.60-5.2); RDW 16.8 % (11.6-15.6)
[2019-04-27 10:55] LABS: ALBUMIN 3.1 g/dl (3.4-5.0); BILIRUBIN,TOTAL 0.5 mg/dl (0.2-1); CALCIUM 8.8 mg/dl (8.5-10); CREATININE 0.8 mg/dl (0.55-1.3); MAGNESIUM 1.9 mg/dL (1.8-2.4); POTASSIUM 4.5 mmol/L (3.5-5.1); TOT PROT 5.5 g/dl (6.4-8.2)
[2019-04-27] MEDS ORDERED: CEFTRIAXONE 1 G/50 ML PREMIX 50 ML IVPB SCH (11:15)
--- NOTE | 2019-04-27 12:58 | PN ---
Physical Exam: SUBJECTIVE: Patient seen and examined at bedside. Daughter present. Feels well, has been walking. Voiding freely. Denies dysuria, frequency, urgency. OBJECTIVE: Vital Signs Period Temp Pulse Resp BP Sys/Sampson Pulse Ox Last 24 Hr 97.9 F-98.7 F 68-75 16-18 117-146/45-52 96-100 GENERAL: Awake, alert, and fully oriented, in no acute distress. HEAD: Normal. Healed scar on forehead. EYES: Pupils equal, round and reactive to light, extraocular movements intact, sclera anicteric, conjunctiva clear LUNGS: Breath sounds equal, clear to auscultation bilaterally. No wheezes, and no crackles. No accessory muscle use. HEART: Regular rate and rhythm, normal S1 and S2 ABDOMEN: Soft, nontender, not distended MUSCULOSKELETAL: Normal range of motion at all joints. No bony deformities or tenderness. No CVA tenderness. UPPER EXTREMITIES: 2+ pulses, warm, well-perfused. No cyanosis. No clubbing. No peripheral edema. Left wrist in splint. LOWER EXTREMITIES: 2+ pulses, warm, well-perfused. No calf tenderness. LLE 3+ edema, RLE 2+edema NEUROLOGICAL: Cranial nerves II-XII intact. Normal speech. Laboratory Results - last 24 hr 04/26/19 04/27/19 04/27/19 21:13 06:31 10:31 WBC 7.0 RBC 3.85 Hgb 8.6 L Hct 29.0 L MCV 75.2 L MCH 22.3 L MCHC 29.7 L RDW 16.8 H Plt Count 409 MPV 9.7 Absolute Neuts (auto) 5.1 Neutrophils % 72.8 Lymphocytes % 15.9 Monocytes % 8.1 Eosinophils % 2.7 Basophils % 0.5 Sodium Potassium Chloride Carbon Dioxide Anion Gap BUN Creatinine Est GFR (CKD-EPI)AfAm Est GFR (CKD-EPI)NonAf POC Glucometer 172 90 Random Glucose Calcium Magnesium Total Bilirubin AST ALT Alkaline Phosphatase Total Protein Albumin 04/27/19 04/27/19 10:31 11:46 WBC RBC Hgb Hct MCV MCH MCHC RDW Plt Count MPV Absolute Neuts (auto) Neutrophils % Lymphocytes % Monocytes % Eosinophils % Basophils % Sodium 135 L Potassium 4.5 Chloride 103 Carbon Dioxide 24 Anion Gap 8 BUN 17.0 Creatinine 0.8 Est GFR (CKD-EPI)AfAm 81.84 Est GFR (CKD-EPI)NonAf 70.61 POC Glucometer 196 Random Glucose 268 H Calcium 8.8 Magnesium 1.9 Total Bilirubin 0.5 AST 42 H ALT 29 Alkaline Phosphatase 159 H D Total Protein 5.5 L Albumin 3.1 L Active Medications Generic Name Dose Route Start Last Admin Trade Name Freq PRN Reason Stop Dose Admin Atorvastatin Calcium 10 mg 04/25/19 22:00 04/26/19 21:27 Lipitor - PO 10 mg HS BRADY Administration Heparin Sodium (Porcine) 5,000 unit 04/26/19 22:00 04/27/19 06:28 Heparin - SQ 5,000 unit TID BRADY Administration Iron Sucrose 200 mg/ Sodium 100 mls @ 100 mls/hr 04/27/19 14:00 Chloride IVPB 04/27/19 14:59 ONCE ONE Ceftriaxone Sodium 50 mls @ 100 mls/hr 04/27/19 11:15 Ceftriaxone 1 Gm-D5w Bag IVPB DAILY BRADY Protocol Insulin Aspart 1 vial 04/25/19 22:00 04/27/19 11:50 Novolog Vial Sliding Scale - SQ 2 units ACHS BRADY Administration Protocol Insulin Detemir 30 units 04/26/19 07:00 04/27/19 06:35 Levemir Vial SQ 30 units AM BRADY Administration Levothyroxine Sodium 112 mcg 04/26/19 07:00 04/27/19 06:28 Synthroid - PO 112 mcg AM BRADY Administration Lisinopril 10 mg 04/26/19 10:00 04/27/19 09:08 Prinivil PO 10 mg DAILY BRADY Administration Melatonin 5 mg 04/25/19 22:00 04/26/19 21:27 Melatonin PO 5 mg HS BRADY Administration Pantoprazole Sodium 20 mg 04/26/19 10:00 04/27/19 09:08 Protonix - PO 20 mg DAILY BRADY Administration Senna 2 tab 04/25/19 22:00 04/26/19 21:27 Senna - PO 2 tab HS BRADY Administration Tamsulosin HCl 0.4 mg 04/26/19 08:30 04/27/19 07:42 Flomax - PO 0.4 mg DAILY@0830 BRADY Administration Review of [facility] records 01/03/19 EGD: (1) normal second portion of duodenum; (2) nodular mucosa duodenal bulb; (3) gastritis; (4) 3cm hiatal hernia; (5) normal esophagus 01/03/19 Colonoscopy: (1) diverticulosis sigmoid; (2) 10mm polyp proximal ascending colon; (3) 7mm polyp descending colon 01/05/19 Path: (1) ascending colon polyp = fragments of tubulovillous adenoma; (2 ) descending colon polyp = fragments of tubular adenoma; (3) brushings rectal polyp = atypical squamous cells ASSESSMENT/PLAN: 78 year-old female, presently a resident at [facility], [place], with a PMH significant for HTN, HLD, anemia, Type II IDDM, h/o DVT LLE, GERD, hypothyroidism, OA, and urinary retention. Admitted for microcytic anemia with shortness of breath. Microcytic anemia Blood loss anemia likely secondary to Eliquis --patient was admitted for shortness of breath likely secondary to both underlying iron-deficiency anemia plus blood loss anemia from Eliquis --October 2018: workup showed iron-deficiency anemia --December 2018: EGD and colonoscopy: no signs of bleeding; rectal polyp path showed atypical squamous cells --February 2019: inpatient at [facility] Hgb 9.1 --03/05: US showed possible DVT, started on Eliquis that day; Hgb dropped 6.5- ->6.9 --04/25: Hgb 7.4; transfused 1U PRBC with good response -->8.7 --04/26:US b/l LE negative for DVT; Eliquis d/c'd --04/27: Hgb stable 8.6; repeat in am; Venofer 200mg today; patient will follow up with Dr. 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 requirements planning manager --if h/h stable tomorrow can be discharged back to [facility] to finish rehab LLE DVT --US negative for DVT Shortness of breath --significantly improved since transfusion, walked 400 feet with PT with minimal SOB, satting 100% on room air --CTA negative for PE --04/26 Echo: LV normal, RV normal, EF 55-60%, trace TR; troponins negative x 3; no ischemic changes on ECG; negative stress in November 2018 UTI --culture (+) LFGNB and (+) Enterococcus but completely asymptomatic; no antibiotics Hypertension --BP stable --continue Lisinopril Hyperlipidemia --continue Lipitor Type II IDDM --Levemir 30U am --Novolog sliding scale GERD --protonix Hypothyroidism --continue levothyroxine Urinary retention --continue Flomax FEN Fluids: PO intake adequate Electrolytes: replete as indicated Nutrition: diabetic, low sodium DVT prophylaxis: Eliquis dc'd; subq lovenox Physical therapy Dispo: continues to require inpatient care. Full code. Visit type - Emergency Visit Emergency Visit: Yes ED Registration Date: 04/25/19 Care time: The patient presented to the Emergency Department on the above date and was hospitalized for further evaluation of their emergent condition. - New Patient This patient is new to me today: No - Critical Care Critical Care patient: No
[2019-04-27] MEDS ORDERED: IRON SUCROSE COMPLEX 100 MG/5 ML VIAL ONE (13:20)
[2019-04-27] MEDS ORDERED: SODIUM CHLORIDE 100 ML IVPB ONE (13:21)
[2019-04-27] MEDS ORDERED: PT OWN MED DRAWER 7, Y5N ONE (13:41)
[2019-04-27] MEDS ORDERED: IRON SUCROSE INJECTION 200 MG in SODIUM CHLORIDE 90 ML IVPB ONE (14:00)
[2019-04-27] MEDS: ENOXAPARIN NA (PORCINE) 40 MG/0.4 ML DISP.SYRIN SQ SCH (16:35)
[2019-04-27] MEDS: MELATONIN 5 MG TABLETS PO SCH (21:29)
[2019-04-27] MEDS: ATORVASTATIN CA 10 MG TABLET (FP) PO SCH (21:30)
[2019-04-27] MEDS: SENNOSIDES 8.6MG TABLET (FP) PO SCH (21:30)
[2019-04-27 23:07] VITALS: TEMP 98.6
[2019-04-28 06:18] VITALS: BP 119/39; PULSE 69
[2019-04-28] MEDS: INSULIN (LEVEMIR) 100 UNITS/ML UNITS SQ SCH (06:53)
[2019-04-28] MEDS: INSULIN SLIDING SCALE (NOVOLOG) 1 VIAL SQ SCH (06:53)
[2019-04-28] MEDS: LEVOTHYROXINE NA 112 MCG TABLET (FP) PO SCH (06:53)
[2019-04-28] MEDS: TAMSULOSIN HCL 0.4 MG CAP PO SCH (08:00)
--- NOTE | 2019-04-28 08:01 | PN ---
Progress Note, Physician History of Present Illness: 78 year-old female, presently a resident at [facility], with a PMH significant for HTN, HLD, anemia, Type II IDDM, h/o DVT LLE on Eliquis, GERD, hypothyroidism , OA, and urinary retention. Patient suffered a fall in February 2019 and sustained a left wrist fracture facial laceration, and a broken nose. She was hospitalized at [facility] and is now at [facility] undergoing rehab. While at [facility] she was found to have a LLE DVT and was started on Eliquis. Patient was sent to the ED today for increasing SOB, IQBAL, lower extremity edema, and anemia. Prior to her fall in February, patient's PCP was working up her anemia. She reportedly had negative cardiac and GI workups. - Current Medication List Current Medications: Active Medications Atorvastatin Calcium (Lipitor -) 10 mg PO [facility] Last Admin: 04/27/19 21:30 Dose: 10 mg Enoxaparin Sodium (Lovenox -) 40 mg SQ DAILY [facility] Last Admin: 04/27/19 16:35 Dose: 40 mg Insulin Aspart (Novolog Vial Sliding Scale -) 1 vial SQ [facility]; Protocol Last Admin: 04/28/19 06:53 Dose: Not Given Insulin Detemir (Levemir Vial) 30 units SQ AM [facility] Last Admin: 04/28/19 06:53 Dose: 30 units Levothyroxine Sodium (Synthroid -) 112 mcg PO AM [facility] Last Admin: 04/28/19 06:53 Dose: 112 mcg Lisinopril (Prinivil) 10 mg PO DAILY [facility] Last Admin: 04/27/19 09:08 Dose: 10 mg Melatonin (Melatonin) 5 mg PO [facility] Last Admin: 04/27/19 21:29 Dose: 5 mg Pantoprazole Sodium (Protonix -) 20 mg PO DAILY [facility] Last Admin: 04/27/19 09:08 Dose: 20 mg Senna (Senna -) 2 tab PO [facility] Last Admin: 04/27/19 21:30 Dose: 2 tab Tamsulosin HCl (Flomax -) 0.4 mg PO DAILY@0830 [facility] Last Admin: 04/27/19 07:42 Dose: 0.4 mg - Objective Vital Signs: Vital Signs Temperature 98.6 F 04/28/19 06:00 Pulse Rate 69 04/28/19 06:00 Respiratory Rate 18 04/28/19 06:00 Blood Pressure 119/39 L 04/28/19 06:00 O2 Sat by Pulse Oximetry (%) 100 04/28/19 06:00 HENT: Yes: Other (Healed scar on forehead.) Labs: CBC, BMP 04/27/19 10:31 04/27/19 10:31 INR, PTT INR 1.43 (0.82-1.09) H 04/25/19 14:15 - ....Imaging Other: Other (Review of [facility] records 01/03/19 EGD: (1) normal second portion of duodenum; (2) nodular mucosa duodenal bulb; (3) gastritis; (4) 3cm hiatal hernia; (5) normal esophagus 01/03/19 Colonoscopy: (1) diverticulosis sigmoid; (2 ) 10mm polyp proximal ascending colon; (3) 7mm polyp descending colon 01/05/19 Path: (1) ascending colon polyp = fragments of tubulovillous adenoma; (2) descending colon polyp = fragments of tubular adenoma; (3) brushings rectal polyp = atypical squamous cells) Problem List - Problems (1) HTN (hypertension) Assessment/Plan: c/w Lisinopril Code(s): I10 - ESSENTIAL (PRIMARY) HYPERTENSION (2) Type II diabetes mellitus Assessment/Plan: BGM AC/qHS with Novolog sliding scale Levemir 30U am Code(s): E11.9 - TYPE 2 DIABETES MELLITUS WITHOUT COMPLICATIONS (3) Hypothyroidism Assessment/Plan: c/w levothyroxine Code(s): E03.9 - HYPOTHYROIDISM, UNSPECIFIED (4) Urinary retention Assessment/Plan: c/w flomax Code(s): R33.9 - RETENTION OF URINE, UNSPECIFIED (5) correction resident Assessment/Plan: discharge back to [facility] when medically stable Code(s): Z59.3 - PROBLEMS RELATED TO LIVING IN RESIDENTIAL INSTITUTION (6) Prophylactic measure Assessment/Plan: FEN PO intake adequate Electrolytes: replete as indicated Nutrition: diabetic, low sodium DVT c/w Eliquis Physical therapy Dispo continues to require inpatient care Full code. discharge pllaning back to [facility] when H/H stable Code(s): Z29.9 - ENCOUNTER FOR PROPHYLACTIC MEASURES, UNSPECIFIED (7) Symptomatic anemia Assessment/Plan: Hgb 7.4 on admission, prior labs from 04/10, 04/17, 04/24 were in the 6.5-6.9 range s/p 1 u PRBC appreciated hemetology consultation appreciate GI consultation GI workup within past 6 months negative; occult stool negative here Consider small bowel capsule study as outpatient. Defer repeat EGD or colonoscopy at this time. Code(s): D64.9 - ANEMIA, UNSPECIFIED (8) GERD (gastroesophageal reflux disease) Assessment/Plan: c/w protonix Code(s): K21.9 - GASTRO-ESOPHAGEAL REFLUX DISEASE WITHOUT ESOPHAGITIS (9) UTI (urinary tract infection) Assessment/Plan: culture (+) LFGNB and (+) Enterococcus but completely asymptomatic monitor off antibiotics Code(s): N39.0 - URINARY TRACT INFECTION, SITE NOT SPECIFIED
[2019-04-28 08:19] LABS: HEMATOCRIT 28.4 % (32.4-45.2); HEMOGLOBIN 8.5 GM/dl (10.7-15.3); MCH 22.5 pg (25.7-33.7); MEAN CELL VOLUME 75.2 fl (80-96); MEAN PLT VOLUME 9.4 fl (7.5-11.1); PLATELET COUNT 372 K/MM3 (134-434); RBC 3.78 M/mm3 (3.60-5.2); RDW 16.6 % (11.6-15.6); WHITE BLOOD COUNT 7.4 K/mm3 (4.0-10.8)
--- NOTE | 2019-04-28 08:48 | DS ---
Physical Exam: SUBJECTIVE: Patient seen and examined in bed. Hgb stable Medically cleared for discharge back to [facility] OBJECTIVE: 78 year-old female, presently a resident at [facility], with a PMH significant for HTN, HLD, anemia, Type II IDDM, h/o DVT LLE on Eliquis, GERD, hypothyroidism , OA, and urinary retention. Patient suffered a fall in February 2019 and sustained a left wrist fracture facial laceration, and a broken nose. She was hospitalized at [facility] and is now at [facility] undergoing rehab. While at [facility] she was found to have a LLE DVT and was started on Eliquis. Patient was sent to the ED today for increasing SOB, IQBAL, lower extremity edema, and anemia. Prior to her fall in February, patient's PCP was working up her anemia. She reportedly had negative cardiac and GI workups. Vital Signs Period Temp Pulse Resp BP Sys/Sampson Pulse Ox Last 24 Hr 98.3 F-98.6 F 69-79 16-18 119-127/39-52 97-100 PHYSICAL EXAM GENERAL: The patient is awake, alert, and fully oriented, in no acute distress. HEAD: Normal with no signs of trauma. EYES: PERRL, extraocular movements intact, sclera anicteric, conjunctiva clear. ENT: Ears normal, nares patent, oropharynx clear without exudates, moist mucous membranes. NECK: Trachea midline, full range of motion, supple. LUNGS: Breath sounds equal, clear to auscultation bilaterally, no wheezes, no crackles, no accessory muscle use. HEART: Regular rate and rhythm, S1, S2 without murmur, rub or gallop. ABDOMEN: Soft, nontender, nondistended, normoactive bowel sounds, no guarding, no rebound, no hepatosplenomegaly, no masses. EXTREMITIES: 2+ pulses, warm, well-perfused, no edema. Brace to left wrist. Abrasion to right forearm noted NEUROLOGICAL: Cranial nerves II through XII grossly intact. Normal speech, gait not observed. PSYCH: Normal mood, normal affect. SKIN: Warm, dry, normal turgor, no rashes or lesions noted. LABS Laboratory Results - last 24 hr 04/27/19 04/27/19 04/27/19 10:31 10:31 11:46 WBC 7.0 RBC 3.85 Hgb 8.6 L Hct 29.0 L MCV 75.2 L MCH 22.3 L MCHC 29.7 L RDW 16.8 H Plt Count 409 MPV 9.7 Absolute Neuts (auto) 5.1 Neutrophils % 72.8 Lymphocytes % 15.9 Monocytes % 8.1 Eosinophils % 2.7 Basophils % 0.5 Sodium 135 L Potassium 4.5 Chloride 103 Carbon Dioxide 24 Anion Gap 8 BUN 17.0 Creatinine 0.8 Est GFR (CKD-EPI)AfAm 81.84 Est GFR (CKD-EPI)NonAf 70.61 POC Glucometer 196 Random Glucose 268 H Calcium 8.8 Magnesium 1.9 Total Bilirubin 0.5 AST 42 H ALT 29 Alkaline Phosphatase 159 H D Total Protein 5.5 L Albumin 3.1 L 04/27/19 04/27/19 04/28/19 16:37 21:33 06:50 WBC RBC Hgb Hct MCV MCH MCHC RDW Plt Count MPV Absolute Neuts (auto) Neutrophils % Lymphocytes % Monocytes % Eosinophils % Basophils % Sodium Potassium Chloride Carbon Dioxide Anion Gap BUN Creatinine Est GFR (CKD-EPI)AfAm Est GFR (CKD-EPI)NonAf POC Glucometer 300 292 112 Random Glucose Calcium Magnesium Total Bilirubin AST ALT Alkaline Phosphatase Total Protein Albumin 04/28/19 08:00 WBC 7.4 RBC 3.78 Hgb 8.5 L Hct 28.4 L MCV 75.2 L MCH 22.5 L MCHC 30.0 L RDW 16.6 H Plt Count 372 MPV 9.4 Absolute Neuts (auto) Neutrophils % Lymphocytes % Monocytes % Eosinophils % Basophils % Sodium Potassium Chloride Carbon Dioxide Anion Gap BUN Creatinine Est GFR (CKD-EPI)AfAm Est GFR (CKD-EPI)NonAf POC Glucometer Random Glucose Calcium Magnesium Total Bilirubin AST ALT Alkaline Phosphatase Total Protein Albumin HOSPITAL COURSE: Date of Admission:04/25/19 Date of Discharge: 04/28/19 *Review of [facility] records 01/03/19 EGD: (1) normal second portion of duodenum; (2 ) nodular mucosa duodenal bulb; (3) gastritis; (4) 3cm hiatal hernia; (5) normal esophagus 01/03/19 Colonoscopy: (1) diverticulosis sigmoid; (2) 10mm polyp proximal ascending colon; (3) 7mm polyp descending colon 01/05/19 Path: (1 ) ascending colon polyp = fragments of tubulovillous adenoma; (2) descending colon polyp = fragments of tubular adenoma; (3) brushings rectal polyp = atypical squamous cells) - Problems (1) HTN (hypertension) Assessment/Plan: c/w Lisinopril Code(s): I10 - ESSENTIAL (PRIMARY) HYPERTENSION (2) Type II diabetes mellitus Assessment/Plan: BGM AC/qHS with Novolog sliding scale Levemir 30U am Code(s): E11.9 - TYPE 2 DIABETES MELLITUS WITHOUT COMPLICATIONS (3) Hypothyroidism Assessment/Plan: c/w levothyroxine Code(s): E03.9 - HYPOTHYROIDISM, UNSPECIFIED (4) Urinary retention Assessment/Plan: c/w flomax Code(s): R33.9 - RETENTION OF URINE, UNSPECIFIED (5) long-term resident Assessment/Plan: discharge back to [facility] when medically stable Code(s): Z59.3 - PROBLEMS RELATED TO LIVING IN RESIDENTIAL INSTITUTION (6) Prophylactic measure Assessment/Plan: FEN PO intake adequate Electrolytes: replete as indicated Nutrition: diabetic, low sodium DVT c/w Eliquis Physical therapy Dispo continues to require inpatient care Full code. discharge pllaning back to [facility] when H/H stable Code(s): Z29.9 - ENCOUNTER FOR PROPHYLACTIC MEASURES, UNSPECIFIED (7) Symptomatic anemia Assessment/Plan: Hgb 7.4 on admission, prior labs from 04/10, 04/17, 04/24 were in the 6.5-6.9 range s/p 1 u PRBC appreciated hemetology consultation appreciate GI consultation GI workup within past 6 months negative; occult stool negative here Consider small bowel capsule study as outpatient. Defer repeat EGD or colonoscopy at this time. Code(s): D64.9 - ANEMIA, UNSPECIFIED (8) GERD (gastroesophageal reflux disease) Assessment/Plan: c/w protonix Code(s): K21.9 - GASTRO-ESOPHAGEAL REFLUX DISEASE WITHOUT ESOPHAGITIS (9) UTI (urinary tract infection) Assessment/Plan: culture (+) LFGNB and (+) Enterococcus but completely asymptomatic monitor off antibiotics Code(s): N39.0 - URINARY TRACT INFECTION, SITE NOT SPECIFIED Minutes to complete discharge: 35 Discharge Summary Problems reviewed: Yes Reason For Visit: SHORTNESS OF BREATH Current Active Problems GERD (gastroesophageal reflux disease) (Acute) HTN (hypertension) (Acute) Hypothyroidism (Acute) long-term resident (Acute) Prophylactic measure (Acute) Symptomatic anemia (Acute) Type II diabetes mellitus (Acute) UTI (urinary tract infection) (Acute) Urinary retention (Acute) Hospital Course: Date of Admission:04/25/19 Date of Discharge: 04/28/19 *Review of [facility] records 01/03/19 EGD: (1) normal second portion of duodenum; (2 ) nodular mucosa duodenal bulb; (3) gastritis; (4) 3cm hiatal hernia; (5) normal esophagus 01/03/19 Colonoscopy: (1) diverticulosis sigmoid; (2) 10mm polyp proximal ascending colon; (3) 7mm polyp descending colon 01/05/19 Path: (1 ) ascending colon polyp = fragments of tubulovillous adenoma; (2) descending colon polyp = fragments of tubular adenoma; (3) brushings rectal polyp = atypical squamous cells) - Problems (1) HTN (hypertension) Assessment/Plan: c/w Lisinopril Code(s): I10 - ESSENTIAL (PRIMARY) HYPERTENSION (2) Type II diabetes mellitus Assessment/Plan: BGM AC/qHS with Novolog sliding scale Levemir 30U am Code(s): E11.9 - TYPE 2 DIABETES MELLITUS WITHOUT COMPLICATIONS (3) Hypothyroidism Assessment/Plan: c/w levothyroxine Code(s): E03.9 - HYPOTHYROIDISM, UNSPECIFIED (4) Urinary retention Assessment/Plan: c/w flomax Code(s): R33.9 - RETENTION OF URINE, UNSPECIFIED (5) long-term resident Assessment/Plan: discharge back to [facility] when medically stable Code(s): Z59.3 - PROBLEMS RELATED TO LIVING IN RESIDENTIAL INSTITUTION (6) Prophylactic measure Assessment/Plan: FEN PO intake adequate Electrolytes: replete as indicated Nutrition: diabetic, low sodium DVT c/w Eliquis Physical therapy Dispo Full code. Discharge back to [facility] Code(s): Z29.9 - ENCOUNTER FOR PROPHYLACTIC MEASURES, UNSPECIFIED (7) Symptomatic anemia Assessment/Plan: Hgb presenly 8.6 Hgb 7.4 on admission, prior labs from 04/10, 04/17, 04/24 were in the 6.5-6.9 range s/p 1 u PRBC appreciated hemetology consultation appreciate GI consultation GI workup within past 6 months negative; occult stool negative here Consider small bowel capsule study as outpatient. Defer repeat EGD or colonoscopy at this time. 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 Resume a diabetic diet. You should follow up with your primary care provider, Dr. Baird within 2 weeks of discharge. If your symptoms return see Dr Baird or return back to the ED Disposition: SENIOR CARE FACILITY - Home Medications Comprehensive Discharge Medication List: Ambulatory Orders Aa/Hydrolyzed Collagen, Whey [Lps Neutral Flavor Liquid] 30 ml PO DAILY Acetaminophen [Tylenol] 650 mg PO QID PRN 04/25/19 Apixaban [Eliquis] 5 mg PO BID 04/25/19 Ascorbate Calcium [Vitamin C] 500 mg PO DAILY 04/25/19 Benazepril HCl 10 mg PO DAILY 04/25/19 Cran B Pac 30 ml PO DAILY 04/25/19 Esomeprazole Magnesium [Nexium 24Hr] 20 mg PO DAILY 04/25/19 Glipizide [Glucotrol Xl] 10 mg PO DAILY 04/25/19 Insulin (LOG) Aspart [NovoLOG -] 7 unit SQ ASDIR 04/25/19 Insulin Glargine,Hum.rec.anlog [Lantus Solostar] 30 unit SQ AM 04/25/19 Levothyroxine [Synthroid -] 112 mcg PO DAILY 04/25/19 Melatonin/Pyridoxine HCl (B6) [Melatonin 5 mg Tablet] 1 tab PO HS 04/25/19 Multivitamin [Multiple Vitamins] 1 each PO DAILY 04/25/19 Nystatin Cream [Mycostatin Cream -] 1 applic TP DAILY 04/25/19 Ondansetron Injection [Zofran Injection] 4 mg IM Q8H PRN 04/25/19 Saccharomyces Boulardii [Florastor] 250 mg PO BID 04/25/19 Sennosides [Senna] 2 tab PO HS 04/25/19 Simethicone 80 mg PO QID PRN 04/25/19 Simvastatin 20 mg PO HS 04/25/19 Tamsulosin HCl [Flomax] 0.4 mg PO DAILY 04/25/19 Triamcinolone 0.1% Cream [Aristocort] 1 applic TP ASDIR 04/25/19 Prescription Drug Monitoring Program (I-STOP) results: I-STOP not reviewed Problem List - Problems (1) HTN (hypertension) Code(s): I10 - ESSENTIAL (PRIMARY) HYPERTENSION (2) Type II diabetes mellitus Code(s): E11.9 - TYPE 2 DIABETES MELLITUS WITHOUT COMPLICATIONS (3) Hypothyroidism Code(s): E03.9 - HYPOTHYROIDISM, UNSPECIFIED (4) Urinary retention Code(s): R33.9 - RETENTION OF URINE, UNSPECIFIED (5) long-term resident Code(s): Z59.3 - PROBLEMS RELATED TO LIVING IN RESIDENTIAL INSTITUTION (6) Prophylactic measure Code(s): Z29.9 - ENCOUNTER FOR PROPHYLACTIC MEASURES, UNSPECIFIED (7) Symptomatic anemia Code(s): D64.9 - ANEMIA, UNSPECIFIED (8) GERD (gastroesophageal reflux disease) Code(s): K21.9 - GASTRO-ESOPHAGEAL REFLUX DISEASE WITHOUT ESOPHAGITIS (9) UTI (urinary tract infection) Code(s): N39.0 - URINARY TRACT INFECTION, SITE NOT SPECIFIED This patient is new to me today: Yes Date on this admission: 04/28/19 Emergency Visit: Yes ED Registration Date: 04/25/19 Care time: The patient presented to the Emergency Department on the above date and was hospitalized for further evaluation of their emergent condition. Critical Care patient: No - Discharge Referral Referred to [facility] Med P.C.: No
[2019-04-28] MEDS: ENOXAPARIN NA (PORCINE) 40 MG/0.4 ML DISP.SYRIN SQ SCH (09:28)
[2019-04-28] MEDS: LISINOPRIL 10 MG TABLET (FP) PO SCH (09:28)
[2019-04-28] MEDS: PANTOPRAZOLE 20 MG TABLET (FP) PO SCH (09:28)
== END 2019-04-28 10:34 | DRG 812 ==
LOC: FER 13:35 → FM/S 17:11
PROVIDERS: ADMIT Internal Medicine; ATTEND Nurse Practitioner Acute Care
DX: D50.9 Iron deficiency anemia, unspecified (principal); N39.0 Urinary tract infection, site not specified; R06.02 Shortness of breath; T45.515A Adverse effect of anticoagulants, initial encounter; I10 Essential (primary) hypertension; E78.5 Hyperlipidemia, unspecified; E11.9 Type 2 diabetes mellitus without complications; D64.9 Anemia, unspecified; E03.9 Hypothyroidism, unspecified; K21.9 Gastro-esophageal reflux disease without esophagitis; Z86.718 Personal history of other venous thrombosis and embolism; R82.81 Pyuria; R33.9 Retention of urine, unspecified; K29.70 Gastritis, unspecified, without bleeding; K44.9 Diaphragmatic hernia without obstruction or gangrene; K57.90 Diverticulosis of intestine, part unspecified, without perforation or abscess without bleeding; K64.8 Other hemorrhoids; B96.20 Unspecified Escherichia coli [E. coli] as the cause of diseases classified elsewhere
CPT/HCPCS: 36415; 36430; 36511; 71045-TC-FY; 71275-TC; 80053; 81003; 81015; 82272; 82550; 82607; 82962; 83735; 83880; 84100; 84443; 84484; 85025; 85027; 85044; 85610; 86850; 86900; 86901; 86922; 87086; 87186; 93005; 93306-TC; 93970-TC; 97116-GP; 97162-GP; 99284-25; J1644; J1756; P9038; P9058